=== PATIENT | female | born 1940 | race Caucasian/White ===

== ENCOUNTER 2017-05-23 22:03 | Inpatient (IN) | payer OTHER ==
[~2017-05-23] VITALS: Ht 165.1 cm; Wt 65.3 kg
[~2017-05-23 22:03] MED LIST: ATIVAN1 MG PO; CRESTOR20 MG PO; IRON325 M1 PO; VITAMIN D31000 UNI2 PO
[2017-05-24 06:18] VITALS: BP 163/67
[2017-05-24 10:55] VITALS: BP 138/66
[2017-05-24 12:45] VITALS: BP 121/60
[2017-05-24 15:20] VITALS: BP 117/57
[2017-05-24 17:50] VITALS: BP 148/76
[2017-05-24 20:31] VITALS: BP 126/60
[2017-05-25] VITALS (7 sets, daily range): BP systolic 120–137; BP diastolic 56–63
[2017-05-26] VITALS (7 sets, daily range): BP systolic 133–153; BP diastolic 60–67
[2017-05-27 03:54] VITALS: BP 144/66
[2017-05-27 08:00] VITALS: BP 116/58
[2017-05-27] MEDS ORDERED: BENADRYL25 MG PO (11:11)
[2017-05-27] MEDS ORDERED: OXYCODONE HCL5 MG PO (11:12)
[2017-05-27] MEDS ORDERED: SENNA PLUS TAB1 EACH PO (11:12)
[2017-05-27] MEDS ORDERED: ELIQUIS2.5 MG PO (11:12)
[2017-05-27] MEDS ORDERED: TYLENOL REGULA325 MG PO (11:12)
[2017-05-27] MEDS ORDERED: LIDOCAINE1 EACH TD (11:12)
[2017-05-27 11:33] VITALS: BP 142/67
== END 2017-05-27 14:08 | DRG 470 ==
LOC: ENRESERV 22:03 → 2SOUTH 05-24 05:52 → 3WEST 05-24 05:52 → 2SOUTH 05-24 11:31 → 3WEST 05-27 14:08
PROC: 0SRC0J9 Replacement of Right Knee Joint with Synthetic Substitute, Cemented, Open Approach (ICD-10-PCS; principal; 2017-05-24)
DX: M17.11 Unilateral primary osteoarthritis, right knee (principal); E78.2 Mixed hyperlipidemia; I10 Essential (primary) hypertension; G43.909 Migraine, unspecified, not intractable, without status migrainosus
CPT/HCPCS: 71010; 85730; C1713; J0131; J0690; J1100; J1885; J2250; J2405; J7050; J7120; L1820; S0020